=== PATIENT | male | born 2000 | race Two or more races ===

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

== ENCOUNTER 2021-01-23 16:56 | Emergency (ER) | payer SELFPAY ==
[~2021-01-23] VITALS: Ht 182.9 cm; Wt 108.0 kg
[2021-01-23 17:06] VITALS: BP 122/68; Ht 182.9 cm; Wt 108.0 kg
[2021-01-23] MEDS ORDERED: IBU600 M2 PO (18:56)
== END 2021-01-23 19:24 | disposition home or self-care (01) ==
LOC: ED 16:56
DX: J02.0 Streptococcal pharyngitis (principal); J45.909 Unspecified asthma, uncomplicated
CPT/HCPCS: J0561; J1100